=== PATIENT | male | born 2000 | race Caucasian/White ===

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

== ENCOUNTER 2022-08-18 18:59 | Emergency (ER) | payer BC, OTHER ==
[~2022-08-18] VITALS: Ht 188 cm; Wt 113.4 kg
[2022-08-18 19:42] VITALS: O2SAT 98
[2022-08-18] MEDS ORDERED: LIDOCAINE HCL 1% LOCAL INJ 20 ML VIAL INJ STA (19:46)
[2022-08-18] MEDS ORDERED: TRAMADOL HCL 50 MG TAB PO STA (20:04)
[2022-08-18] MEDS ORDERED: CLINDAMYCIN HC300 MG PO (20:06)
[2022-08-18] MEDS ORDERED: BACTRIM DS TAB1 EACH PO (20:06)
[2022-08-18] MEDS ORDERED: ULTRAM 50MG50 MG PO (20:07)
== END 2022-08-18 21:08 | disposition home or self-care (01) ==
LOC: ER 19:12
DX: L05.91 Pilonidal cyst without abscess (principal)
CPT/HCPCS: 99283